=== PATIENT | female | born 1990 | race Caucasian/White ===

== ENCOUNTER 2018-03-20 23:16 | Emergency (ER) | payer OTHER ==
[~2018-03-20] VITALS: Ht 165.1 cm; Wt 59.0 kg
[~2018-03-20 23:16] MED LIST: BENZTROPINE ME0.5 MG PO; CLOZAPINE100 M1 PO; NORCO 5-325 TA1 EACH PO; PHENERGAN 25 MG25 M1 PO; RISPERDAL 1 MG T1 MG PO; TRAZODONE HCL100 MG PO; VENTOLIN HFA 1818 GM INH; WELLBUTRIN 100100 MG PO; WELLBUTRIN XL150 M1; ZOFRAN ODT4 MG PO
[2018-03-21 00:50] VITALS: BP 131/68
== END 2018-03-21 00:51 | disposition home or self-care (01) ==
LOC: ER 23:16
DX: S61.412A Laceration without foreign body of left hand, initial encounter (principal); W26.8XXA Contact with other sharp object(s), not elsewhere classified, initial encounter; Y93.89 Activity, other specified; Y92.89 Other specified places as the place of occurrence of the external cause; Y99.8 Other external cause status; F17.210 Nicotine dependence, cigarettes, uncomplicated; Z88.0 Allergy status to penicillin

== ENCOUNTER 2019-05-23 17:50 | Emergency (ER) | payer OTHER ==
[~2019-05-23] VITALS: Ht 162.6 cm; Wt 59.0 kg
[2019-05-23 17:51] VITALS: BP 138/82
== END 2019-05-23 18:35 | disposition home or self-care (01) ==
LOC: ER 17:50
DX: S09.90XA Unspecified injury of head, initial encounter (principal); F17.210 Nicotine dependence, cigarettes, uncomplicated; W22.8XXA Striking against or struck by other objects, initial encounter; Y93.89 Activity, other specified; Y92.69 Other specified industrial and construction area as the place of occurrence of the external cause; Y99.9 Unspecified external cause status